=== PATIENT | male | born 1980 | race Caucasian/White ===

== ENCOUNTER 2021-03-01 13:22 | Inpatient (IN) | payer OTHER ==
[2021-03-01] MEDS ORDERED: LORazepam 2 MG/ML INJ IV STA (14:19)
[2021-03-01 14:42] LABS: Basophils # (A) 0.1 k/uL (0-0.2); Basophils % (A) 1 %; Eosinophils # (A) 0.1 k/uL (0-0.7); Eosinophils % (A) 1 %; HCT 50.7 % (39.0-53.0); HGB 17.4 gm/dL (13.0-17.5); Lymphocytes # (A) 4.9 k/uL (1.0-4.8); Lymphocytes % (A) 51 %; MCH 32.9 pg (25.0-35.0); MCHC 34.4 g/dL (31.0-37.0); MCV 95.6 fL (80.0-100.0); Monocytes # (A) 0.2 k/uL (0-1.0); Monocytes % (A) 2 %; Neutrophils # (A) 4.1 k/uL (1.3-7.7); Neutrophils % (A) 43 %; Platelet Count 452 k/uL (150-450); RDW 12.9 % (11.5-15.5); WBC 9.7 k/uL (3.8-10.6)
[2021-03-01 14:50] LABS: ALT 27 U/L (4-49); AST 44 U/L (17-59); African American GFR (CKD) >90 (>60 ml/min/1.73 sqM); Alkaline Phosphatase 85 U/L (38-126); Anion Gap 14 mmol/L; Blood Urea Nitrogen 12 mg/dL (9-20); Calcium 10.1 mg/dL (8.4-10.2); Carbon Dioxide 25 mmol/L (22-30); Chloride 104 mmol/L (98-107); Glucose 110 mg/dL (74-99); Lipase 247 U/L (23-300); Magnesium 2.1 mg/dL (1.6-2.3); Non-African American GFR(CKD) >90 (>60 ml/min/1.73 sqM); Potassium 4.8 mmol/L (3.5-5.1); Sodium 143 mmol/L (137-145); Total Bilirubin 1.4 mg/dL (0.2-1.3); Total Protein 8.1 g/dL (6.3-8.2)
[2021-03-01 15:03] LABS: Alcohol 316 mg/dL
[2021-03-01] MEDS ORDERED: NALOXONE 0.4 MG/ML 1 ML VIAL IV PRN (15:56)
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
[2021-03-01] MEDS ORDERED: THIAMINE 100 MG/ML 2 ML VIAL IM STA (15:57)
[2021-03-01] MEDS ORDERED: LORazepam 2 MG/ML INJ IV PRN (15:57)
[2021-03-01] MEDS ORDERED: NICOTINE 21MG/24HR PATCH TRANSDERM STA (16:06)
[2021-03-01] MEDS: SODIUM CHLORIDE 0.9% 1,000 ML IV SCH (17:06)
[2021-03-01] MEDS: LORazepam 2 MG/ML INJ IV PRN (19:20)
[2021-03-01] MEDS ORDERED: TEMAZEPAM 15 MG CAP PO PRN (19:35)
--- NOTE | 2021-03-01 21:03 | HP ---
HISTORY AND PHYSICAL CHIEF COMPLAINT: Alcohol intoxication. HISTORY OF PRESENT ILLNESS: This 40-year-old gentleman with a past medical history of GERD, hypertension, history of heartburn, anxiety, bipolar depression, not being followed by any primary physician in the outpatient setting to be signed up for to see Dr. Vasquez in [place], was apparently checking into the rehab center in [place] according to the family, but they found the patient was intoxicated. The patient is referred to [facility] ER for further evaluation and treatment. Patient had previously alcohol withdrawal seizures and delirium tremens also. The last alcohol drink was this morning apparently, and alcohol level was found to be 316, Covid 19 is negative. There is no history of fever, rigors or chills. No history of headache, loss of consciousness or seizures. PAST MEDICAL HISTORY: History of hypertension, history of heartburn, history of anxiety, bipolar depression. History of nicotine dependence. MEDICATIONS: Home medications are trazodone, Vistaril, and ReVia. ALLERGIES: None. FAMILY HISTORY: No history of heart disease or strokes in the family. SOCIAL HISTORY: History of smoking, alcohol as mentioned earlier. REVIEW OF SYSTEMS: ENT: No diminished vision. No diminished hearing. CARDIOVASCULAR: No angina or palpitations. RESPIRATION: No cough, no hemoptysis. GI no nausea or vomiting. no dysuria or hematuria. NERVOUS SYSTEM: Generalized weakness. ALLERGY/IMMUNOLOGY: No asthma or hayfever. MUSCULOSKELETAL as mentioned earlier. HEMATOLOGY/ONCOLOGY: No history of anemia. ENDOCRINE: No history of diabetes or hypothyroidism. CONSTITUTIONAL: As mentioned earlier. DERMATOLOGY: Negative. RHEUMATOLOGY: Negative. PSYCHIATRIC: As mentioned earlier. PHYSICAL EXAMINATION: Alert and oriented x3. Pulse is 146, blood pressure 159/93. Respirations 20. Temperature is 98.3, pulse ox 98% on room air. HEENT: Conjunctivae normal. Oral mucosa moist. NECK is no jugular venous distention. No carotid bruit. No lymph node enlargement. CARDIOVASCULAR system: S1, S2 muffled, tachycardic. RESPIRATIONS: Breath sounds diminished in the bases. No rhonchi. No crackles. ABDOMEN: Soft, nontender. No mass palpable. LEGS: No edema. No swelling. NERVOUS SYSTEM: Higher functions as mentioned earlier. Moves all 4 limbs. No focal motor or sensory deficit. LYMPHATICS: No lymph nodes palpable in the neck, axillae or groin. SKIN: No ulcer, rash or bleeding. JOINTS: No active deforming arthropathy. LABS: Platelets are 452. Other labs are noted. Bilirubin is 1.4. Serum alcohol 316. ASSESSMENT: 1. Acute alcohol intoxication. 2. Change in mental status, acute metabolic encephalopathy secondary to alcohol intoxication. 3. Early alcohol withdrawal syndrome and delirium tremens. 4. Increased platelets. 5. Elevated bilirubin possibly alcoholic hepatitis. 6. History of gastroesophageal reflux disease. 7. Hypertension. 8. Tachycardia. 9. Anxiety, bipolar, depression. 10.History of nicotine dependence. 11.FULL CODE. RECOMMENDATIONS AND DISCUSSION: This 40-year-old gentleman who presented with multiple complex medical issues, we will monitor the patient closely, continue the current medications, management and symptomatic treatment. Otherwise at this time, CIWA protocol. Monitor closely. Supplement vitamins. Prognosis guarded because of multiple complex medical issues. Further recommendations to follow. A copy of dictation being forwarded to Dr. Vasquez who is going to be the primary physician. MMLIZZETTEL / HECTORN: [id number] / MTDDidi
[2021-03-01] MEDS: traZODone HCL 50 MG TAB PO SCH (22:14)
[2021-03-02] MEDS: LORazepam 2 MG/ML INJ IV PRN ×6 (00:10→22:03)
[2021-03-02 05:52] LABS: Amphetamine Screen,Urine Not Detected (NotDetected); Barbiturate Screen,Urine Not Detected (NotDetected); Benzodiazepines Screen,Urine Detected (NotDetected); Cocaine Screen,Urine Not Detected (NotDetected); Methadone Screen, Urine Not Detected (NotDetected); Opiate Screen,Urine Not Detected (NotDetected); Oxycodone Screen, Urine Not Detected (NotDetected); Phencyclidine Screen,Urine Not Detected (NotDetected); Tricyclic Antidepressant,Urine Not Detected (NotDetected); Urn Cannabinoid Scrn Not Detected (NotDetected)
[2021-03-02 05:53] LABS: Appearance,Urine Clear (Clear); Bilirubin,Urine Negative (Negative); Blood,Urine Negative (Negative); Color,Urine Yellow; Glucose,Urine (UA) Negative (Negative); Ketones,Urine Negative (Negative); Leukocyte Esterase,Urine Negative (Negative); Nitrite,Urine Negative (Negative); PH, Urine 8.5 (5.0-8.0); Protein,Urine Trace (Negative); Urobilinogen,Urine <2.0 mg/dL (<2.0)
[2021-03-02 06:55] LABS: Basophils % (A) 1 %; Eosinophils # (A) 0.2 k/uL (0-0.7); Eosinophils % (A) 3 %; HCT 43.3 % (39.0-53.0); HGB 15.2 gm/dL (13.0-17.5); Lymphocytes # (A) 2.6 k/uL (1.0-4.8); Lymphocytes % (A) 37 %; MCHC 35.2 g/dL (31.0-37.0); MCV 96.5 fL (80.0-100.0); Monocytes # (A) 0.3 k/uL (0-1.0); Monocytes % (A) 4 %; Neutrophils # (A) 3.6 k/uL (1.3-7.7); Neutrophils % (A) 53 %; Platelet Count 311 k/uL (150-450); RBC 4.48 m/uL (4.30-5.90); RDW 12.6 % (11.5-15.5); WBC 6.8 k/uL (3.8-10.6)
[2021-03-02] MEDS: SODIUM CHLORIDE 0.9% 1,000 ML IV SCH ×2 (08:01→18:15)
[2021-03-02] MEDS: hydrOXYzine pamoate 25 MG CAP PO SCH (08:02)
[2021-03-02] MEDS: THIAMINE 100 MG TAB PO SCH ×2 (08:02→18:14)
[2021-03-02 10:59] LABS: African American GFR (CKD) 127.7 (60.0-200.0); Albumin 4.2 g/dL (3.80-4.90); Anion Gap 9.4 mmol/L (4.00-12.00); Calcium 8.9 mg/dL (8.7-10.3); Carbon Dioxide 23.6 mmol/L (21.6-31.8); Globulin 2.1 g/dL (1.6-3.3); Non-African American GFR(CKD) 110.2 (60.0-200.0); Potassium 4.1 mmol/L (3.5-5.5); Total Bilirubin 2.2 mg/dL (0.3-1.2); Total Protein 6.3 g/dL (6.2-8.2)
[2021-03-02] MEDS: MULTIVITAMINS, THERA 1 EACH TAB PO SCH (11:11)
[2021-03-02] MEDS: FOLIC ACID 1 MG TAB PO SCH (11:11)
--- NOTE | 2021-03-02 19:25 | XR ---
EXAMINATION TYPE: XR chest 1V portable DATE OF EXAM: 03/02/2021 COMPARISON: 11/06/2015 HISTORY: Short of breath TECHNIQUE: FINDINGS: Heart and mediastinum are normal. Lungs are clear. Diaphragm is normal. Bony thorax appears normal. IMPRESSION: Normal chest. No change.
--- NOTE | 2021-03-02 19:33 | PN ---
PROGRESS NOTE DATE OF SERVICE: 03/02/2021 This 40-year-old gentleman admitted with alcohol intoxication has significant DTs. Patient is shaking and unable to complete a sentence. No chest pain. No palpitations. No fever. PHYSICAL EXAMINATION: Alert pulse 79, blood pressure 143/70, respiration 17, temperature 98.3, pulse ox 98% on room air. HEENT: Conjunctivae normal. NECK: No jugular venous distention. CARDIOVASCULAR: S1, S2 muffled. RESPIRATION: Breath sounds diminished at the bases. No rhonchi. No crackles. ABDOMEN: Soft. NERVOUS SYSTEM: Diffusely weak. Tremors and shapes present. Total bilirubin is 2.2. Drug screen is positive for benzodiazepines. ASSESSMENT: 1. Acute alcohol intoxication, present on admission. 2. Acute delirium tremens currently. 3. Change in mental status, acute metabolic encephalopathy, multifactorial. 4. Increased platelets. 5. 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 6. History of gastroesophageal reflux disease. 7. Hypertension. 8. Tachycardia. 9. Anxiety, bipolar, depression. 10.History of nicotine dependence. 11.FULL CODE. RECOMMENDATIONS AND DISCUSSION: I recommend to continue current medications, continue with symptomatic treatment. Continue with the multivitamin. Continue with CIWA protocol. Prognosis guarded. Continue the DVT prophylaxis. I would also recommend a chest x-ray to complete workup. MMODL / IJN: [id number] / MTDD
[2021-03-02] MEDS: traZODone HCL 50 MG TAB PO SCH (20:30)
[2021-03-02] MEDS: HEPARIN SODIUM,PORCINE/PF 5,000 UNIT/0.5 ML SYRINGE SQ SCH (20:30)
--- NOTE | 2021-03-02 23:55 | P.CN ---
Psychiatric Consult - . Consult date: 03/02/21 Consult:: Reason for consultation: Alcohol use Identifying data: Patient is a 40-year-old male who was admitted to medical floor because of severe alcohol withdrawal and need for medical detox. The patient was seen while while was at the medical floor. Chief complaint and history of present illness: Patient was brought to ED because of severe alcohol withdrawal and as per nursing he reported with confusion and severe tremors with BAL at that time was more than 300. Patient reports history of severe alcohol use disorder with average drinking one fifth or liquor daily. He reports anxiety symptoms including racing thoughts, feeling tense, constantly worried and sometimes having panic attacks. Reports history of previous treatment for anxiety but he stopped medications 3 years ago. Reports some depression symptoms related to his alcohol drinking and difficulties to control his problem. Denies feeling hopeless and never has SI. Reports social anxiety and he always avoids going to crowded places. Denies any history of manic symptoms including feeling inflated self-esteem, a euphoric mood, unusual increased level of energy, lack need to sleep due to increased activities, or impulsive and irrational behavior. Denies ay history of psychotic symptoms including auditory/visual hallucinations, paranoid ideation, or delusions.Reports some nights having sleep problems. Past psychiatric history: Previous psychiatric hospitalization: Denies Previous suicidal attempts: Never Previous psychiatric treatment: 3 years ago and received medications for anxiety but he couldn't recall their names. Reports current psych medications Vistaril as needed for anxiety and Trazodone as needed for insomnia Substance use history: Nicotine: Smokes 1 PPD Alcohol: Started to drink at age 15, and heavy drinking from his mid 30s with average one fifth of vodka daily. Has 3 years sobriety but relapsed 2-3 years ago. Previous inpatient treatment many years ago. The patient was referred to [facility] from inpatient rehab center for stabilization after presented with severe withdrawal and BAL > 300. Denies any history of using marijuana or street drugs. Family history of psychiatric illness: His father was heavy drinker. Denies family history of mental illness or suicide Brief social history: Pt currently lives with his sister and her . , but from his . Has no children. 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 Raised up by his parents and denies any history of childhood abuse. Dropped out school at 12th grade. Mental status examination: Appearance: The patient appears stated age, adequately groomed and dressed, no specific features. Gait/posture: Lying down. No abnormal movements. Attitude and behavior: engaged, cooperative, fair eye contact. Motor activity: Normal psycho-motor activity Speech: Normal rate, tone. Mood: Anxious Affect: Constricted Thought form: goal-directed, linear, coherent. Thought content: Non-delusional, denies suicidal thoughts, denies homicidal thou ghts, denies intentions or plans. Perception: Denies any auditory or visual hallucinations Attention: No impairment. Patient was able to repeat serial 5. Orientation: Patient patient was fully oriented to time place person and situation. Insight: Patient has fair insight about his psychiatric disorder. Judgment: Patient has fair judgment about his psychiatric treatment. Assessment: Alcohol use disorder, severe Anxiety disorder, unspecified. Social anxiety disorder Recommendations: Addressed and ensured patient's safety, patient does not meet the criteria for psychiatric hospitalization. At this time there is no need for further follow-up by psychiatric team. Provide patient with resources for outpatient psychiatric and SHERRY treatment- Pt will be discharged to inpatient rehab as per patient and nursing Discussed the treatment plan with the requesting physician/service. Brief supportive psychotherapy was provided regarding patient's acute and chronic stress. Psycho-education was provided to the patient. Thank you for permitting me to assist in this patient's treatment. Please call psychiatry department if you have any question or need further help with this case. 03/02/21
[2021-03-03] MEDS: LORazepam 2 MG/ML INJ IV PRN ×4 (03:18→20:47)
[2021-03-03] MEDS: hydrOXYzine pamoate 25 MG CAP PO SCH (08:25)
[2021-03-03] MEDS: HEPARIN SODIUM,PORCINE/PF 5,000 UNIT/0.5 ML SYRINGE SQ SCH ×2 (08:26→20:48)
[2021-03-03] MEDS: MULTIVITAMINS, THERA 1 EACH TAB PO SCH (08:26)
[2021-03-03] MEDS: FOLIC ACID 1 MG TAB PO SCH (08:26)
[2021-03-03] MEDS: THIAMINE 100 MG TAB PO SCH ×2 (08:26→17:21)
[2021-03-03] MEDS: SODIUM CHLORIDE 0.9% 1,000 ML IV SCH ×2 (08:29→20:49)
--- NOTE | 2021-03-03 18:44 | PN ---
PROGRESS NOTE DATE OF SERVICE: 03/03/2021 This 40-year-old gentleman who was admitted with acute alcohol intoxication. is being closely monitored. Patient has active delirium tremens. No chest pain. No palpitations. No fever. The chest x-ray did not show any acute abnormality. PHYSICAL EXAMINATION: Alert and oriented x2. Pulse 91, blood pressure 140/90, respirations 17, temperature 98.4, pulse ox 94% on room air. HEENT: Conjunctivae normal. Oral mucosa moist. NECK: No jugular venous distention. No lymph node enlargement. CARDIOVASCULAR: S1, S2, muffled. No S3, no S4, RESPIRATORY: Diminished breath sounds at the bases. A few scattered rhonchi. ABDOMEN: Soft. LEGS: No edema, no swelling. NERVOUS SYSTEM: Diffusely weak. Tremors present. LABS: Noted. ASSESSMENT: 1. Acute alcohol withdrawal and acute delirium tremens. 2. Change in mental status, acute metabolic encephalopathy, multifactorial. 3. Increased platelets. 4. Acute alcohol intoxication present on admission. 5. 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 6. History of gastroesophageal reflux disease. 7. Hypertension. 8. Tachycardia. 9. Anxiety, bipolar, depression. 10.History of nicotine dependence. 11.FULL CODE. RECOMMENDATIONS AND DISCUSSION: I recommend to continue current management and symptomatic treatment. Otherwise, at this time I would recommend continue with CIWA protocol. Increase ambulation. Guarded prognosis because of multiple complex medical issues. Further recommendations to follow. MMODL / IJN: [id number] /
[2021-03-03] MEDS: traZODone HCL 50 MG TAB PO SCH (20:47)
[2021-03-03] MEDS: NICOTINE 21MG/24HR PATCH TRANSDERM SCH (20:54)
[2021-03-04] MEDS: LORazepam 2 MG/ML INJ IV PRN ×3 (01:31→11:10)
[2021-03-04] MEDS: THIAMINE 100 MG TAB PO SCH ×2 (08:31→16:32)
[2021-03-04] MEDS: HEPARIN SODIUM,PORCINE/PF 5,000 UNIT/0.5 ML SYRINGE SQ SCH ×3 (08:31→21:01)
[2021-03-04] MEDS: hydrOXYzine pamoate 25 MG CAP PO SCH (08:31)
[2021-03-04] MEDS: NICOTINE 21MG/24HR PATCH TRANSDERM SCH (08:31)
[2021-03-04] MEDS: SODIUM CHLORIDE 0.9% 1,000 ML IV SCH ×2 (11:11→21:07)
[2021-03-04] MEDS: MULTIVITAMINS, THERA 1 EACH TAB PO SCH (12:03)
[2021-03-04] MEDS: FOLIC ACID 1 MG TAB PO SCH (12:03)
[2021-03-04] MEDS: LORazepam 1 MG TAB PO PRN ×2 (17:43→21:05)
--- NOTE | 2021-03-04 19:38 | PN ---
PROGRESS NOTE DATE OF SERVICE: 03/04/2021 This 40-year-old gentleman who was admitted with acute alcohol withdrawal, also had acute delirium tremens. No chest pain. No palpitations. No fever. PHYSICAL EXAMINATION: Alert and oriented x3. Pulse is 101, blood pressure 149/92, respiration 18, temperature 98 degrees, pulse ox 98% on room air. HEENT: Conjunctivae normal. Oral mucosa moist. NECK: No jugular venous distention. No lymph node enlargement. CARDIOVASCULAR: S1, S2, muffled. No S3, no S4, RESPIRATORY: Diminished breath sounds at the bases. A few scattered rhonchi. ABDOMEN: Soft, nontender. LEGS: No edema, no swelling. NERVOUS SYSTEM: No focal deficits. LABS: CBC within normal limits and total bilirubin is 2.2. ASSESSMENT: 1. Acute alcohol withdrawal and acute delirium tremens. 2. Change in mental status, acute metabolic encephalopathy, multifactorial. 3. Increased platelets. 4. Acute alcohol intoxication present on admission. 5. 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 6. History of gastroesophageal reflux disease. 7. Hypertension. 8. Tachycardia. 9. Anxiety, bipolar depression. 10.History of nicotine dependence. 11.FULL CODE. RECOMMENDATIONS: Recommend to continue current management and symptomatic treatment. Otherwise, at this time I would recommend continue with [facility] protocol, outpatient rehab. Further recommendations to follow. MMODL / IJN: [id number] /
[2021-03-04] MEDS: traZODone HCL 50 MG TAB PO SCH (21:04)
[2021-03-04] MEDS: HYDROcodone/APAP 5-325MG 1 EACH TAB PO PRN (21:05)
[2021-03-05 04:23] VITALS: BP 147/90; PULSE 85; RESP 18; TEMP 98.4
[2021-03-05] MEDS: LORazepam 1 MG TAB PO PRN ×2 (04:30→08:31)
[2021-03-05] MEDS: HYDROcodone/APAP 5-325MG 1 EACH TAB PO PRN (04:31)
[2021-03-05] MEDS: HEPARIN SODIUM,PORCINE/PF 5,000 UNIT/0.5 ML SYRINGE SQ SCH ×2 (08:31→08:38)
[2021-03-05] MEDS: hydrOXYzine pamoate 25 MG CAP PO SCH (08:31)
[2021-03-05] MEDS: NICOTINE 21MG/24HR PATCH TRANSDERM SCH (08:32)
[2021-03-05] MEDS: MULTIVITAMINS, THERA 1 EACH TAB PO SCH (08:32)
[2021-03-05] MEDS: FOLIC ACID 1 MG TAB PO SCH (08:32)
[2021-03-05] MEDS: THIAMINE 100 MG TAB PO SCH (08:34)
--- NOTE | 2021-03-05 14:27 | P.DS ---
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 Patient will follow-up with Dr. Vasquez in the outpatient setting upon discharge. Patient will be going to [facility] in [place] and being transported by his sister on discharge. Total time taken is greater than 35 minutes. Hospital course This is a 40-year-old male who was recently admitted with acute alcohol withdrawal also had acute delirium tremens and was being closely monitored. Patient was evaluated by psychiatry recommending close outpatient follow-up with community mental health and alcohol rehab would be of benefit to the patient. Patient has an intake appointment today at [facility] in [place] for inpatient rehab. Sister is here to provide transportation to [place]. Patient was maintained on [facility] protocol and recommend close outpatient follow-up with community mental health and primary care follow-up as well once discharged from alcohol rehab. Instructed the patient to continue to avoid alcohol intake and take medications as prescribed. Currently no reports of chest pain, worsening shortness of breath, or palpitations. Patient is afebrile. No repor ts of nausea or vomiting and patient is tolerating diet. Patient will be discharged today. On exam vital signs are stable. Cardio S1, S2 are muffled. Respiratory system shows diminished breath sounds at the bases with no wheezing or rhonchi noted. Abdomen is soft and nontender. Nervous system shows no focal deficits. Please refer to medication reconciliation sheet for a list of medications. Patient Condition at Discharge: Fair Plan - Discharge Summary Discharge Rx Participant: No New Discharge Prescriptions: New Nicotine 21Mg/24Hr Patch [Habitrol] 1 patch TRANSDERM DAILY 20 Days #20 patch Thiamine [Vitamin B-1] 100 mg PO BID-W/MEALS #60 tab LORazepam [Ativan] 1 mg PO TID PRN #6 tab PRN Reason: Alcohol Withdrawal Folic Acid 1 mg PO DAILY@1200 #30 tab Multivitamins, Thera [Multivitamin (formulary)] 1 each PO DAILY@1200 #30 tab HYDROcodone/APAP 5-325MG [[place]enn[place] 5-325] 1 each PO Q6HR PRN #9 tab PRN Reason: Pain Continue Naltrexone HCl [Revia] 50 mg PO DAILY traZODone HCL 50 mg PO HS hydrOXYzine pamoate [Vistaril] 25 mg PO DAILY Discharge Medication List Naltrexone HCl [Revia] 50 mg PO DAILY 03/01/21 [History] hydrOXYzine pamoate [Vistaril] 25 mg PO DAILY 03/01/21 [History] traZODone HCL 50 mg PO HS 03/01/21 [History] Folic Acid 1 mg PO DAILY@1200 #30 tab 03/05/21 [Rx] HYDROcodone/APAP 5-325MG [[place]enniker 5-325] 1 each PO Q6HR PRN #9 tab 03/05/21 [Rx] LORazepam [Ativan] 1 mg PO TID PRN #6 tab 03/05/21 [Rx] Multivitamins, Thera [Multivitamin (formulary)] 1 each PO DAILY@1200 #30 tab 03/05/21 [Rx] Nicotine 21Mg/24Hr Patch [Habitrol] 1 patch TRANSDERM DAILY 20 Days #20 patch 03/05/21 [Rx] Thiamine [Vitamin B-1] 100 mg PO BID-W/MEALS #60 tab 03/05/21 [Rx] Follow up Appointment(s)/Referral(s): None,Stated [Primary Care Provider] - 1-2 days Shawn Vasquez MD [STAFF PHYSICIAN] - 1 Week Patient Instructions/Handouts: Hydrocodone/Acetaminophen (By mouth), Lorazepam (By mouth), Alcohol Intoxication (ED) Activity/Diet/Wound Care/Special Instructions: Patient will be going to [facility] in [place] for alcohol rehab Continue current diet Activity as tolerated Avoid any alcohol intake Follow-up with primary care provider upon discharge Discharge Disposition: HOME SELF-CARE
== END 2021-03-05 10:07 | disposition home or self-care (01) | DRG 896 ==
LOC: EC 13:22 → 5NMEDONC 17:06 → OBSVTOIN 03-04 10:03
PROVIDERS: ADMIT Internal Medicine; ATTEND Internal Medicine
DX: F10.131 Alcohol abuse with withdrawal delirium (principal); G93.41 Metabolic encephalopathy; F31.30 Bipolar disorder, current episode depressed, mild or moderate severity, unspecified; R17 Unspecified jaundice; F10.129 Alcohol abuse with intoxication, unspecified; F17.200 Nicotine dependence, unspecified, uncomplicated; F41.9 Anxiety disorder, unspecified; G31.2 Degeneration of nervous system due to alcohol; I10 Essential (primary) hypertension; Y90.8 Blood alcohol level of 240 mg/100 ml or more; Z20.822 Contact with and (suspected) exposure to COVID-19; Z89.429 Acquired absence of other toe(s), unspecified side; K21.9 Gastro-esophageal reflux disease without esophagitis
CPT/HCPCS: 36415; 71045; 80053; 80306; 80320; 81003; 83690; 83735; 85025; 87635; 93005; 96374; 99285